=== PATIENT | female | born 1990 | race African-American/Black ===

== ENCOUNTER 2016-08-29 12:23 | Emergency (ER) | payer BC ==
[~2016-08-29] VITALS: Ht 165.1 cm; Wt 120.2 kg
[2016-08-29] MEDS ORDERED: BENADRYL25 MG PO (13:39)
[2016-08-29] MEDS ORDERED: PREDNISONE 20 M20 MG PO (13:39)
== END 2016-08-29 14:06 | disposition home or self-care (01) ==
LOC: ER 12:23
DX: T78.40XA Allergy, unspecified, initial encounter (principal); X58.XXXA Exposure to other specified factors, initial encounter